=== PATIENT | male | born 1995 | race African-American/Black ===

== ENCOUNTER 2017-02-14 21:52 | Emergency (ER) | payer MEDICAID, OTHER ==
--- NOTE | 2017-02-14 22:04 | EDM.PDOC ---
ED HPI GENERAL MEDICAL PROBLEM - General Stated Complaint: INJURED L ANKLE Time Seen by Provider: 02/14/17 21:52 Source of Information: Reports: Patient History Limitations: Reports: No Limitations - History of Present Illness INITIAL COMMENTS - FREE TEXT/NARRATIVE: 21 y.o.b.m came to the ed after he twisted his left ankle during a sports game. Pt came to the ED with a walking boot -left side-and crutches. No other acute medical issues. Onset: Today Onset Date: 02/14/17 Onset Time: 14:00 Duration: Hour(s):, Intermittent Location: Reports: Lower Extremity, Left Quality: Reports: Ache Severity: Mild Improves with: Reports: Rest Worsens with: Reports: Movement Context: Reports: Exercise Associated Symptoms: Reports: No Other Symptoms L ankle Pain Score (Numeric/FACES): 8 - Related Data Allergies Allergy/AdvReac Type Severity Reaction Status Date / Time No Known Allergies Allergy Verified 02/14/17 23:13 Home Meds: Home Meds NK [No Known Home Meds] 02/14/17 [History] Review of Systems - Review of Systems Review Of Systems: See Below Constitutional: Reports: No Symptoms Eyes: Reports: No Symptoms Ears: Reports: No Symptoms Nose: Reports: No Symptoms Mouth/Throat: Reports: No Symptoms Respiratory: Reports: No Symptoms Cardiovascular: Reports: No Symptoms GI/Abdominal: Reports: No Symptoms Genitourinary: Reports: No Symptoms Musculoskeletal: Reports: Other (ankle pain) Skin: Reports: No Symptoms Neurological: Reports: No Symptoms Psychiatric: Reports: No Symptoms ED EXAM, GENERAL - Physical Exam Exam: See Below Exam Limited By: No Limitations General Appearance: Alert, WD/WN, Mild Distress Eye Exam: Bilateral Eye: Normal Inspection Ears: Normal External Exam Ear Exam: Bilateral Ear: Auricle Normal Nose: Normal Inspection Throat/Mouth: Normal Inspection Head: Atraumatic, Normocephalic Neck: Normal Inspection, Supple, Non-Tender, Full Range of Motion Respiratory/Chest: No Respiratory Distress, Lungs Clear, Normal Breath Sounds Cardiovascular: Normal Peripheral Pulses, Regular Rate, Rhythm, No Edema, No JVD , No Murmur, No Rub GI/Abdominal: Normal Bowel Sounds, Soft (Male) Exam: Deferred Rectal (Males) Exam: Deferred Back Exam: Normal Inspection, Full Range of Motion Extremities: Normal Inspection, Normal Range of Motion, Other (tender left ankle medial aspect,minor) Neurological: Alert, Oriented, CN II-XII Intact, Normal Cognition Psychiatric: Normal Affect, Normal Mood Skin Exam: Warm, Intact, Normal Color Lymphatic: No Adenopathy Course - Vital Signs Text/Narrative:: 21 y.o.b.m came to the ed after he twisted his left ankle during a sports game. Pt came to the ED with a walking boot -left side-and crutches. No other acute medical issues. PE: Left ankle pain, medial aspect Imaging: Possible old chip Fx r ankle medial aspect. Tx: Ice, Walking Boot (own), crutches (own) Reexam: Improved Plan: D/C with instructions Last Recorded V/S: Last Vital Signs Temp 36.6 C 02/14/17 22:00 Pulse 55 L 02/14/17 22:00 Resp 18 02/14/17 23:12 BP 142/60 H 02/14/17 23:12 Pulse Ox 100 02/14/17 23:12 Departure - Departure Time of Disposition: 22:48 Disposition: Home, Self-Care 01 Condition: Good Clinical Impression: Ankle fracture, left Qualifiers: Encounter type: initial encounter Fracture type: closed Qualified Code(s): S82.892A - Other fracture of left lower leg, initial encounter for closed fracture - Discharge Information Instructions: Ankle Fracture, [id number] Referrals: PCP,None [Primary Care Provider] - Forms: ED Department Discharge Additional Instructions: Please f/u up with your orthopedic surgeon a.s.a.p. Motrin for pain, Ice to the affected area. Elevation of left lower leg, no weight bearing till seen by Ortho. Please come back if your symptoms get worse acutely. No sports activity till see by your Orthopedic surgeon. Tylenol or Motrin as needed for pain. Ice to ankle for 20-30minutes 4-6 times per day.
--- NOTE | 2017-02-17 13:25 | CR ---
INDICATION: Left ankle pain after trauma. LEFT ANKLE: Three views of the left ankle revealed hypertrophic changes at the ankle mortise compatible with mild osteoarthritis, most likely posttraumatic type. Small calcific or bony density is noted at the inferior aspect of the medial malleolus. This may represent an ununited accessory ossification center, although a small chip fracture fragment cannot be excluded. If this is a fracture site, it likely is old due to nonunion of a chip fracture fragment. The ankle mortise was otherwise unremarkable. IMPRESSION: 1. No acute fracture or dislocation. 2. 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 3. Small calcific or bony density along the inferior aspect of the medial malleolus may represent an ununited accessory ossification center or possibly an old chip fracture fragment that did not unite. MTDD
== END 2017-02-14 23:31 | disposition home or self-care (01) ==
LOC: FB.ED 21:52
DX: S82.892A Other fracture of left lower leg, initial encounter for closed fracture (principal); X58.XXXA Exposure to other specified factors, initial encounter; W51.XXXA Accidental striking against or bumped into by another person, initial encounter
CPT/HCPCS: 73610-LT; 99283